=== PATIENT | male | born 1980 | race Two or more races ===

== ENCOUNTER 2020-01-29 13:15 | Outpatient (CLI) | payer BC | END 2020-01-29 23:59 | disposition home or self-care (01) | LOC: WOU 13:15 | PROVIDERS: ATTEND Specialist | DX: Z01.818 Encounter for other preprocedural examination (principal); Z96.652 Presence of left artificial knee joint | CPT/HCPCS: G0463 ==

== ENCOUNTER 2020-02-11 09:51 | Outpatient (CLI) | payer BC | END 2020-02-11 23:59 | disposition home or self-care (01) | LOC: WOU 09:51 | PROVIDERS: ATTEND Specialist | DX: T58.8X1A Toxic effect of carbon monoxide from other source, accidental (unintentional), initial encounter (principal); R51.9 Headache, unspecified; Y92.003 Bedroom of unspecified non-institutional (private) residence as the place of occurrence of the external cause; Z96.652 Presence of left artificial knee joint | CPT/HCPCS: G0463 ==